=== PATIENT | male | born 1950 | race Caucasian/White ===

== ENCOUNTER 2017-05-09 08:31 | Day surgery (SDC) | payer MEDICARE, BC ==
[2017-05-08 15:27] VITALS: BMI 34.9
--- NOTE | 2017-05-09 05:59 | HP ---
HISTORY OF PRESENT ILLNESS: Mr. Valera is a very pleasant 66-year-old man who presents for evaluation of low back pain that radiates in both a partial L4 and L5 pattern, down the right lower extremity, and has done so over the last several weeks. He has a CT from [place] that reveals bone spurs in both the L4 and L5 foramen to the right that would fit his symptom presentation. He denies weakness and numbness and he also has hip and knee arthropathy that likely contributing to some degree. He renteria s had injections for this which certainly do help, but only for very short period of time. PAST MEDICAL HISTORY: Asthma, knee and back problems and obstructive sleep apnea. MEDICATIONS: Benicar, hydrochlorothiazide, amlodipine, and potassium. PAST SURGICAL HISTORY: Herniorrhaphy. ALLERGIES: No known drug allergies. PHYSICAL EXAMINATION: NEUROLOGIC: The patient is alert and oriented x3. Gait is profoundly antalgic. Lower extremity mot or exam is normal. ASSESSMENT: Lumbar radiculopathy. PLAN: Dr. Bay met with the patient, reviewed, imaging and ultimately advocated for a right L5 face tectomy. He explained to the patient the risks, benefits, and alternatives of the procedure. The jayne herzog expressed understanding and would like to move forward with surgery as discussed. I do believe the patient is mentally competent and capable of making medical decisions for himself. We will move forward with surgery as planned.
[2017-05-09 10:11] LABS: Anion Gap 12 mmol/L (10-20); BUN (Urea Nitrogen) 26 mg/dL (8.4-25.7); Calc. Creatinine Clearance 83 mL/min (70-130); Calcium 9.7 mg/dL (7.8-10.44); Carbon Dioxide 27 mmol/L (23-31); Chloride 108 mmol/L (98-107); Estimated GFR-MDRD 48
[2017-05-09] MEDS ORDERED: CEFAZOLIN/Water 2 GM/20 ML SYRINGE ONE ×2 (10:12→16:15)
[2017-05-09] MEDS ORDERED: Bupivacaine/Epinephrine 0.25% 30 ML VIAL ONE (10:57)
[2017-05-09] MEDS ORDERED: Thrombin 5000 UNITS/5 ML VIAL ONE (10:57)
[2017-05-09] MEDS ORDERED: Fentanyl 100 MCG/2 ML VIAL ONE (11:20)
[2017-05-09] MEDS ORDERED: Midazolam HCl 2 mg/2 ml Vial ONE (11:20)
--- NOTE | 2017-05-09 13:23 | OP ---
DATE OF SURGERY: 05/09/2017 SURGEON: Isiah Bay M.D. EMBOSSING PRESS OPERATOR APPRENTICE: Danny Thompson PA-C INDICATION: Pain. DIAGNOSIS: Right L5 radiculopathy. PROCEDURE: Right L5 hemilaminectomy, medial facetectomy, foraminotomy. ANESTHESIA: General. TECHNIQUE: The patient was brought into the operating room and placed under general anesthesia. He was flipped from a supine to a prone position on the operating room table. A linear incision was ez nned over the L5 segment. After prepping and draping and after an appropriate operative pause, the i ncision was created and the soft tissues were swept left of midline. Self-retaining retractors were placed in the wound for optimal exposure. After confirming the appropriate level, high-speed cutting drill bit as well as 2, 3 and 4 mm Kerrisons used to perform laminectomy along L5 on the right. We also removed the medial facet joint at L5-S1 and performed a foraminotomy over the exiting L5 nerve r oot. The wound was then irrigated. Hemostasis was maintained throughout. The wound was then closed in anatomic layers and a pressure dressing was applied. There were no known procedural complication s.
[2017-05-09] MEDS ORDERED: Tamsulosin HCl 0.4 MG CAP ONE (13:57)
[2017-05-09] MEDS ORDERED: Morphine 4 MG/ML VIAL ONE (14:59)
[2017-05-09] MEDS ORDERED: Glycopyrrolate 0.2 MG/ML 5 ML SYRINGE ONE (15:11)
[2017-05-09] MEDS ORDERED: Lidocaine 1% PF 5 ML VIAL ONE (15:11)
[2017-05-09] MEDS ORDERED: diphenhydrAMINE 50 MG/ML VIAL ONE (15:11)
[2017-05-09] MEDS ORDERED: Dexamethasone 20 MG/5 ML VIAL ONE (15:11)
[2017-05-09] MEDS ORDERED: Ondansetron HCl/PF 4 MG/2 ML Vial ONE (15:11)
[2017-05-09] MEDS ORDERED: Metoclopramide HCl 10 MG/2 ML VIAL ONE (15:11)
[2017-05-09] MEDS ORDERED: Propofol 200 MG/20 ML VIAL ONE (15:11)
== END 2017-05-09 16:18 | disposition home or self-care (01) ==
LOC: SDC 08:31
PROVIDERS: ATTEND Neurological Surgery
PROC: 0SB20ZZ Excision of Lumbar Vertebral Disc, Open Approach (ICD-10-PCS; principal; 2017-05-09)
PROC: 01NB0ZZ Release Lumbar Nerve, Open Approach (ICD-10-PCS; 2017-05-09)
DX: M54.16 Radiculopathy, lumbar region (principal); J45.909 Unspecified asthma, uncomplicated; G47.33 Obstructive sleep apnea (adult) (pediatric); Z79.899 Other long term (current) drug therapy; Z98.890 Other specified postprocedural states
CPT/HCPCS: 36415; 76001; 80048; 96374; J0131; J1100; J1200; J2001; J2250; J2270; J2405; J2704; J2765; J3010

== ENCOUNTER 2022-09-26 11:15 | Inpatient (IN) | payer MEDICARE, BC ==
[2022-09-26 12:19] LABS: Hemoglobin 14.1 g/dL (13.5-17.5); Mean Corpuscular HGB CONC 32.7 g/dL (32.0-36.0); Mean Corpuscular Hemoglobin 32.1 pg (27.0-33.0); Mean Corpuscular Volume 98.2 fl (81.2-95.1); Mean Platelet Volume 11.8 fl (7.4-10.4); Platelet Count 163 10x3/uL (150-450); RBC Distribution Width 13.7 % (11.5-14.5); Red Blood Cell (RBC) Count 4.39 10x6/uL (4.32-5.72)
[2022-09-26 12:41] LABS: ALT (SGPT) 18 U/L (8-55); AST (SGOT) 21 U/L (5-34); Albumin 4.4 g/dL (3.4-4.8); Alkaline Phosphatase 64 U/L (40-110); Anion Gap 13 mmol/L (10-20); BUN (Urea Nitrogen) 25 mg/dL (8.4-25.7); Bilirubin, Total 0.7 mg/dL (0.2-1.2); Calc. Creatinine Clearance 0 mL/min (70-130); Calcium 9.4 mg/dL (7.8-10.44); Carbon Dioxide 25 mmol/L (23-31); Chloride 107 mmol/L (98-107); Estimated GFR 33; Globulin 2.2 g/dL (2.4-3.5); Glucose 111 mg/dL (83-110); Potassium 5.4 mmol/L (3.5-5.1); Protein, Total 6.6 g/dL (5.8-8.1); Sodium 140 mmol/L (136-145)
[2022-09-26 12:44] LABS: Prothrombin Time 10.6 sec (9.5-12.1)
[2022-10-03] MEDS ORDERED: Iopamidol 370 76% 100 ML VIAL ONE (08:31)
[2022-10-03] MEDS ORDERED: CEFAZOLIN 1 GM VIAL ONE (08:46)
[2022-10-03] MEDS ORDERED: Heparin 10,000 UNITS/ 10 ML VIAL ONE (08:46)
[2022-10-03] MEDS ORDERED: Protamine Sulfate 50 MG/5 ML VIAL ONE (08:46)
[2022-10-03] MEDS ORDERED: fentaNYL 50 mcg/mL 1 mL Vial ONE ×4 (10:46→17:23)
[2022-10-03] MEDS ORDERED: Rocuronium Bromide 10 MG/ML (10ML VIAL) ONE (10:52)
[2022-10-03] MEDS ORDERED: Dexamethasone 20 MG/5 ML VIAL ONE (10:52)
[2022-10-03] MEDS ORDERED: PROPOFOL 200 MG/20 ML VIAL ONE (10:52)
[2022-10-03] MEDS ORDERED: Labetalol HCl 100 MG/20 ML VIAL ONE (10:52)
[2022-10-03] MEDS ORDERED: Ondansetron PF 4 MG/2 ML Vial ONE (10:52)
[2022-10-03] MEDS ORDERED: Lidocaine 1% PF 5 ML VIAL ONE ×2 (10:52→17:00)
[2022-10-03] MEDS ORDERED: HYDROcodone/Acetaminophen 5/325 mg Tablet PO PRN (10:53)
[2022-10-03] MEDS ORDERED: Acetaminophen 325 MG TAB PO PRN (10:53)
[2022-10-03] MEDS ORDERED: Famotidine/PF 20 mg/2ml Vial ONE (15:23)
[2022-10-03] MEDS ORDERED: Acetaminophen 325 MG TAB ONE ×2 (16:11)
[2022-10-03] MEDS ORDERED: Enoxaparin 120 MG/0.8 ML SYRINGE SC SCH (18:00)
[2022-10-03 18:04] VITALS: BMI 35.7
[2022-10-03] MEDS: Dronedarone HCl 400 MG TAB PO SCH (18:25)
[2022-10-03] MEDS ORDERED: Rosuvastatin 20 MG TAB PO SCH (21:00)
[2022-10-04] MEDS ORDERED: Aspirin 81 mg Enteric Coated Tablet PO SCH (09:00)
[2022-10-04] MEDS ORDERED: Losartan 25 MG TAB PO SCH (09:00)
[2022-10-04] MEDS ORDERED: Clopidogrel Bisulfate 75 MG TAB PO SCH (09:00)
[2022-10-04] MEDS: Dronedarone HCl 400 MG TAB PO SCH (09:07)
[2022-10-04 12:08] VITALS: BP 168/78; TEMP 97.5
== END 2022-10-04 13:00 | disposition home or self-care (01) | DRG 274 ==
LOC: SURG A 10-03 07:11 → 2NO 10-03 17:48
PROVIDERS: ADMIT Internal Medicine Cardiovascular Disease; ATTEND Internal Medicine Cardiovascular Disease
PROC: 02L73DK Occlusion of Left Atrial Appendage with Intraluminal Device, Percutaneous Approach (ICD-10-PCS; principal; 2022-10-03)
PROC: B24BZZ4 Ultrasonography of Heart with Aorta, Transesophageal (ICD-10-PCS; 2022-10-03)
DX: I48.0 Paroxysmal atrial fibrillation (principal); I31.39 Other pericardial effusion (noninflammatory); Z79.899 Other long term (current) drug therapy; Z79.02 Long term (current) use of antithrombotics/antiplatelets
CPT/HCPCS: 33340; 80053; 85027; 85610; 86850; 86900; 86901; 93306; 93312; C1759; C1760; C1817; C1894; J0690; J1100; J1644; J2405; J2704; J2720; J3010; Q9967; S0028

== ENCOUNTER 2023-04-10 14:48 | Outpatient (CLI) | payer MEDICARE, BC | END 2023-04-10 14:49 | disposition home or self-care (01) | LOC: RAD 14:48 | PROVIDERS: ATTEND Internal Medicine Critical Care Medicine | DX: R06.00 Dyspnea, unspecified (principal) | CPT/HCPCS: 71046 ==

== ENCOUNTER 2024-04-08 10:21 | Outpatient (CLI) | payer MEDICARE, BC | END 2024-04-08 10:22 | disposition home or self-care (01) | LOC: RAD 10:21 | PROVIDERS: ATTEND Internal Medicine Critical Care Medicine | DX: R06.00 Dyspnea, unspecified (principal); J98.4 Other disorders of lung; R91.8 Other nonspecific abnormal finding of lung field; Z95.0 Presence of cardiac pacemaker | CPT/HCPCS: 71046 ==

== ENCOUNTER 2024-06-12 08:47 | Outpatient (CLI) | payer MEDICARE, BC | END 2024-06-12 08:48 | disposition home or self-care (01) | LOC: RAD 08:47 | PROVIDERS: ATTEND Neurological Surgery | DX: M54.12 Radiculopathy, cervical region (principal); R29.818 Other symptoms and signs involving the nervous system; Z95.0 Presence of cardiac pacemaker | CPT/HCPCS: 71046 ==

== ENCOUNTER 2024-06-16 08:39 | Outpatient (CLI) | payer MEDICARE, BC | END 2024-06-16 08:40 | disposition home or self-care (01) | LOC: MRI 08:39 | PROVIDERS: ATTEND Neurological Surgery | DX: M47.22 Other spondylosis with radiculopathy, cervical region (principal); R29.818 Other symptoms and signs involving the nervous system; M48.02 Spinal stenosis, cervical region; M48.03 Spinal stenosis, cervicothoracic region; M47.26 Other spondylosis with radiculopathy, lumbar region; M47.815 Spondylosis without myelopathy or radiculopathy, thoracolumbar region; M47.817 Spondylosis without myelopathy or radiculopathy, lumbosacral region | CPT/HCPCS: 72141; 72148 ==